=== PATIENT | male | born 1990 | race African-American/Black ===

== ENCOUNTER 2022-12-05 13:28 | Emergency (ER) | payer SELFPAY ==
--- NOTE | 2022-12-05 14:31 | XR ---
EXAMINATION TYPE: XR wrist complete RT DATE OF EXAM: 12/05/2022 2:16 PM INDICATION: Patient age:Male; 32 years old; Reason for study: pain swelling; PHH. COMPARISON: None available TECHNIQUE: 4 views of the right wrist. Frontal, navicular, lateral, and oblique. FINDINGS: Post surgical changes from right distal radius fracture with fixation plate. The fracture l ine is not well visualized with surrounding callus formation demonstrated. No new acute fractures or dislocations. Mild soft tissue edema of the wrist. Overlying cast material limits evaluation of fine osseous detail. IMPRESSION: 1. Postsurgical changes from right distal radius fracture with fixation hardware. No new acute fract ures. No dislocation. If there is continuing clinical concern, consider further evaluation with MRI. 2. Mild soft tissue edema of the wrist.
--- NOTE | 2022-12-05 14:41 | ED ---
General Adult HPI - General Chief complaint: Extremity Injury, Upper Stated complaint: wrist injury Time Seen by Provider: 12/05/22 13:47 Source: patient Mode of arrival: ambulatory Limitations: no limitations - History of Present Illness Initial comments: Patient is a 32-year-old male who presents to the emergency department for evaluation of right wrist pain. Patient states he broke his wrist in October and had surgery. States his pain and swelling improved completely so he did not follow-up with operating room specialist. Patient states yesterday he was doing yoga and afterwards he noticed some very mild pain in his wrist as well as swelling. Denies numbness and tingling. - Related Data Allergies Allergy/AdvReac Type Severity Reaction Status Date / Time No Known Allergies Allergy Verified 12/05/22 13:41 Review of Systems ROS Statement: Those systems with pertinent positive or pertinent negative responses have been documented in the HPI. ROS Other: All systems not noted in ROS Statement are negative. Past Medical History Past Medical History: No Reported History History of Any Multi-Drug Resistant Organisms: None Reported Additional Past Surgical History / Comment(s): right wrist- previous fx. Past Psychological History: No Psychological Hx Reported Smoking Status: Never smoker Past Alcohol Use History: None Reported Past Drug Use History: Marijuana General Exam Limitations: no limitations General appearance: alert, in no apparent distress Eye exam: Present: normal appearance, PERRL, EOMI. Absent: scleral icterus, conjunctival injection, periorbital swelling Respiratory exam: Present: normal lung sounds bilaterally. Absent: respiratory distress, wheezes, rales, rhonchi, stridor Cardiovascular Exam: Present: regular rate, normal rhythm, normal heart sounds. Absent: systolic murmur, diastolic murmur, rubs, gallop, clicks Extremities exam: Present: other (Mild swelling and minimal tenderness to right dorsal wrist. No anatomical snuffbox tenderness. Neurovascularly intact. Full range of motion. Pain with ulnar deviation.) Psychiatric exam: Present: normal affect, normal mood Skin exam: Present: warm, dry, intact, normal color. Absent: rash Course Vital Signs 12/05/22 12/05/22 13:39 14:58 Temperature 98.0 F 97.8 F Pulse Rate 100 94 Respiratory 20 18 Rate Blood Pressure 120/78 122/68 O2 Sat by Pulse 99 97 Oximetry Medical Decision Making - Medical Decision Making Was pt. sent in by a medical professional or institution (KATIE Crouch, COMPUTER NUMERICAL CONTROL OPERATOR, urgent care, hospital, or custodial...) When possible be specific @ -[No] Did you speak to anyone other than the patient for history (EMS, parent, family, police, friend...)? What history was obtained from this source @ -[No] Did you review nursing and triage notes (agree or disagree)? Why? @ -[I reviewed and agree with nursing and triage notes] Were old charts reviewed (outside hosp., previous admission, EMS record, old EKG, old radiological studies, urgent care reports/EKG's, custodial records)? Report findings @ -[No old charts were reviewed] Differential Diagnosis (chest pain, altered mental status, abdominal pain women, abdominal pain men, vaginal bleeding, weakness, fever, dyspnea, syncope, headache, dizziness, GI bleed, back pain, seizure, CVA, palpatations, mental health)? @ -[not applicable] EKG interpreted by me (3pts min.). @ -[As above] X-rays interpreted by me (1pt min.). @ -Yes, right wrist x-ray shows mild soft tissue edema without evidence of fracture. Hardware is intact. CT interpreted by me (1pt min.). @ -[None done] U/S interpreted by me (1pt. min.). @ -[None done] What testing was considered but not performed or refused? (CT, X-rays, U/S, labs)? Why? @ -[None] What meds were considered but not given or refused? Why? @ -I considered pain medications but the patient declined. Did you discuss the management of the patient with other professionals (andrew [address] i.eKATIE [address] COMPUTER NUMERICAL CONTROL OPERATOR, lab, RT, psych nurse, psychologist social, supervisor fiberglass boat assembly, teacher, special weapons and tactics officer, correctional counselor/case manager)? Give summary @ -[No] Was smoking cessation discussed for >3mins.? @ -[No] Was critical care preformed (if so, how long)? @ -[No] Were there social determinants of health that impacted care today? How? (Homelessness, low income, unemployed, alcoholism, drug addiction, transportation, low edu. Level, literacy, decrease access to med. care, group home, rehab)? @ -[No] Was there de-escalation of care discussed even if they declined (Discuss DNR or withdrawal of care, Hospice)? DNR status @ -[No] What co-morbidities impacted this encounter? (DM, HTN, Smoking, COPD, CAD, Cancer, CVA, ARF, Chemo, Hep., AIDS, mental health diagnosis, sleep apnea, morbid obesity)? @ -[None] Was patient admitted / discharged? Hospital course, mention meds given and route, prescriptions, significant lab abnormalities, going to OR and other pertinent info. @ -This is a 32-year-old presenting with right wrist pain. X-ray shows mild soft tissue edema without evidence of fracture. Patient has minimal pain. We discussed conservative management at home with rest, ice, and elevation. Patient already wearing Rodri bandage. Patient to follow-up with operating room specialist Undiagnosed new problem with uncertain prognosis? @ -[No] Drug Therapy requiring intensive monitoring for toxicity (Heparin, Nitro, Insulin, Cardizem)? @ -[No] Were any procedures done? @ -[No] Diagnosis/symptom? @ right wrist pain Acute, or Chronic, or Acute on Chronic? @ -acute Uncomplicated (without systemic symptoms) or Complicated (systemic symptoms)? @ -uncomplicated Side effects of treatment? @ -[No] Exacerbation, Progression, or Severe Exacerbation? @ -[No] Poses a threat to life or bodily function? How? (Chest pain, USA, ID, pneumonia, PE, COPD, DKA, ARF, appy, cholecystitis, CVA, Diverticulitis, Homicidal, Suicidal, threat to staff... and all critical care pts) @ -[No] Dr. Chavez is my attending. Disposition Clinical Impression: Right wrist pain, Swelling of right wrist Disposition: HOME SELF-CARE Condition: Good Instructions (If sedation given, give patient instructions): Wrist Injury (ED) Additional Instructions: Follow-up with operating room specialist in 1-2 days. Return to the emergency department if you experience new, concerning, or worsening symptoms. Is patient prescribed a controlled substance at d/c from ED?: No Referrals: None,Stated [Primary Care Provider] - 1-2 days Durga Taylor DO [Doctor of Osteopathic Medicine] - 1-2 days
[2022-12-05 14:59] VITALS: BP 122/68; PULSE 94; RESP 18; TEMP 97.8
== END 2022-12-05 14:58 | disposition home or self-care (01) ==
LOC: EC 13:28
DX: M25.531 Pain in right wrist (principal); R22.31 Localized swelling, mass and lump, right upper limb; F12.90 Cannabis use, unspecified, uncomplicated
CPT/HCPCS: 99283